=== PATIENT | female | born 2005 | race Two or more races ===

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

== ENCOUNTER 2025-03-12 16:25 | Emergency (ER) | payer MEDICAID ==
[~2025-03-12] VITALS: Ht 152.4 cm; Wt 87.0 kg
[~2025-03-12 16:25] MED LIST changes: -AMOX-277 PO; +AMOX875T4 PO
[2025-03-12 16:49] VITALS: BP 115/56; PULSE 97; RESP 18; TEMP 97.7; O2SAT 95
[2025-03-12 17:42] LABS: Alanine Aminotransferase 16 U/L (7-40); Albumin 4.1 g/dL (3.2-4.8); Alkaline Phosphatase 63 U/L (46-116); Anion Gap 9 (5-15); Aspartate Aminotransferase 14 U/L (13-40); Carbon Dioxide 25 mmol/L (20-31); Glucose 85 mg/dL (74-106); Sodium 141 mmol/L (136-145); Total Protein 6.5 g/dL (5.7-8.2)
[2025-03-12 17:43] LABS: BUN/Creatinine Ratio 11.1 (10.0-20.0); Bilirubin, Total 0.2 mg/dL (0.2-1.0); Blood Urea Nitrogen < 5 mg/dL (9-23); Chloride 107 mmol/L (98-107)
[2025-03-12 17:46] LABS: Basophils # (auto) 0 10 ^3/uL (0-0.2); Basophils % (auto) 0.3 % (0.0-2.0); Eosinophils # (auto) 0.1 10 ^3/uL (0-0.8); Eosinophils % (auto) 1.4 % (0.0-7.0); Hematocrit 39.1 % (36.0-46.0); Hemoglobin 13.2 g/dL (12.2-16.2); Lymphocytes # (auto) 2.1 10 ^3/uL (0.4-5.4); Mean Corpuscular Hemoglobin 28.6 pg (28.0-32.0); Mean Corpuscular Hgb Conc. 33.6 g/dL (32.0-36.0); Mean Corpuscular Volume 84.9 fL (80.0-100.0); Monocytes # (auto) 0.8 10 ^3/uL (0-1.3); Monocytes % (auto) 8.4 % (0.0-12.0); Neutrophils # (auto) 6.6 10 ^3/uL (1.6-8.6); Neutrophils % (auto) 67.9 % (37.0-80.0); Nucleated Red Blood Cells % 0.2 %; Platelet Count (auto) 315 10^3/uL (140-450); Red Blood Cells 4.61 10^6/uL (4.0-5.20); Red Cell Distribution Width 14.5 % (11.8-14.3); White Blood Cell 9.7 10^3/uL (4.4-10.8)
--- NOTE | 2025-03-12 18:22 | DVH ---
EXAM: US Abdomen Limited CLINICAL INDICATION: AT SURGICAL SITE/R/O ABCCESS TECHNIQUE: Real-time ultrasound of the mid quadrant with image documentation. COMPARISON: None FINDINGS: SOFT TISSUES: Surgical skin olga. No obvious fluid collection or organized abscess. OTHER FINDINGS: . Unremarkable. IMPRESSION: Surgical skin olga. No obvious fluid collection or organized abscess.
[2025-03-12] MEDS ORDERED: CEPH500C PO (18:40)
--- NOTE | 2025-03-12 18:41 | ED.PDOC ---
History of Present Illness(SKN HPI Comments WITH A CC OF ABSCESS TO MID ABD REGION S/P LABOTOMY D/T. PT REPORTS 21 WKS AND STATES GREEN FLUID DRAINING FROM SURGICAL SITE ON ABDOMEN. PATIENT DENIES FEVER, CHILLS, NAUSEA, VOMITING, VAGINAL BLEEDING, VOMIT VAGINAL SPOTTING, CHEST PAIN, DIFFICULTY BREATHING, SHORTNESS A BREATH. Chief Complaint: Wound Check Time Seen by MD: 16:50 Primary Care Provider: NONE History of Present Illness: Nurses Notes, Medications, Allergies Allergies: Coded Allergies: NO KNOWN ALLERGIES (Unverified , 09/12/16) Home Meds Active Scripts Cephalexin Monohydrate (Cephalexin) 500 Mg Cap, 1 CAP PO QID for 7 Days, #40 CAP Prov:MARK ALEXANDRA SOFTWARE INTEGRATION DEVELOPER 03/12/25 Amoxicillin & Pot Clavulanate (Amoxicillin/Potassium Cla) 875 Mg Tab, 1 TAB PO BID for 7 Days, #14 TAB 0 Refills Prov:LENY CESAR SOFTWARE INTEGRATION DEVELOPER 12/13/21 Information Source: Patient Mode of Arrival: Ambulatory Past Medical History PAST MEDICAL HISTORY: Denies Surgical History: Denies all surgeries 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 Family History Family History: Reviewed,noncontributory to illness Social History Smoker: Non-Smoker Alcohol: Denies ETOH Use Drugs: Denies Drug Use Lives In: Home Constitutional: reports: chills; denies: diaphoresis, fatigue, fever, malaise, sweats, weakness, others EENTM: denies: blurred vision, double vision, ear bleeding, ear discharge, ear drainage, ear pain, ear ringing, eye pain, eye redness, hearing loss, mouth pain, mouth swelling, nasal discharge, nose bleeding, nose congestion, nose pain, photophobia, tearing, throat pain, throat swelling, voice changes, others Respiratory: denies: cough, hemoptysis, orthopnea, SOB at rest, shortness of breath, SOB with excertion, stridor, wheezing, others Cardiovascular: denies: chest pain, dizzy spells, diaphoresis, Dyspnea on exertion, edema, irregular heart beat, left arm pain, lightheadedness, palpitations, PND, syncope, others Gastrointestinal: denies: abdomen distended, abdominal pain, blood streaked bowels, constipated, diarrhea, dysphagia, difficulty swallowing, hematemesis, melena, nausea, poor appetite, poor fluid intake, rectal bleeding, rectal pain, vomiting, others Genitourinary: denies: abnormal vagina bleeding, burning, dyspareunia, dysuria, flank pain, frequency, hematuria, incontinence, pain, , vagina discharge, urgency, others Neurological: denies: dizziness, fainting, headache, left sided numbness, left sided weakness, numbness, paresthesia, pre-existing deficit, right sided numbness, right sided weakness, seizure, speech problems, tingling, tremors, weakness, others Musculoskeletal: denies: back pain, gout, joint pain, joint swelling, muscle pain, muscle stiffness, neck pain, others Integumetry: denies: bruises, change in color, change in hair/nails, dryness, laceration, lesions, lumps, rash, wounds, others Allergic/Immunocompromised: denies: Difficulty Healing, Frequent Infections, Hives, Itching, others Hematologic/Lymphatic: denies: anemia, blood clots, easy bleeding, easy bruising, swollen glands, others Endocrine: denies: excessive hunger, excessive sweating, excessive thirst, excessive urination, flushing, intolerance to cold, intolerance to heat, unexplained weight gain, unexplained weight loss, others Psychiatric: denies: anxiety, bipolar disorder, depression, hopeless, panic disorder, schizophrenia, sleepless, suicidal, others Physical Exam General Appearance: No Apparent Distress, Normal HEENT: Normal ENT Inspection, Pharynx Normal, TMs Normal Neck: Full Range of Motion, Non-Tender Respiratory: Lungs Clear, No Respiratory Distress, Normal Breath Sounds Cardiovascular: No Edema, No JVD, No Murmur, No Gallop, Normal Peripheral Pulses, Regular Rate/Rhythm Breast Exam: Deferred Gastrointestinal: No Organomegaly, No Pulsatile Mass, Normal Bowel Sounds, Soft, Tenderness (OVER SURGICAL SITE) Genitalia: Deferred Pelvic: Deferred Rectal: Deferred Extremities: No calf tenderness, Normal capillary refill, Normal inspection, Normal range of motion, Non-tender, No pedal edema Musculoskeletal : Apperance: Normal Neurologic: Alert, burling and joining supervisor II-XII nml as Tested, No Motor Deficits, Normal Affect, Normal Mood, No Sensory Deficits Cerebellar Function: Normal Reflexes: Normal Skin: Dry, Normal Color, Warm, Wounds (SURGICAL SITE RAIZA IN PLACE TRACE YELLOWISH DRAINAGE AROUND RAIZA WITH TRACE ERYTHEMA . NO NOTED STREAKING.) Lymphatic: No Adenopathy Was a procedure done? Was a procedure done?: No Differential Diagnosis (INTG) Differential Diagnosis: Cellulitis, Hematoma Differential Diagnosis: Abscess X-Ray, Labs, Meds, VS Vital Signs Date Time Temp Pulse Resp B/P (MAP) Pulse Ox O2 Delivery O2 Flow Rate FiO2 03/12/25 16:49 97.7 97 18 115/56 (75) 95 97.7 Lab Test 03/12/25 17:02 Range/Units White Blood Count 9.7 4.4-10.8 10^3/uL Red Blood Count 4.61 4.0-5.20 10^6/uL Hemoglobin 13.2 12.2-16.2 g/dL Hematocrit 39.1 36.0-46.0 % Mean Corpuscular Volume 84.9 80.0-100.0 fL Mean Corpuscular Hemoglobin 28.6 28.0-32.0 pg Mean Corpuscular Hemoglobin Concent 33.6 32.0-36.0 g/dL Red Cell Distribution Width 14.5 H 11.8-14.3 % Platelet Count 315 140-450 10^3/uL Mean Platelet Volume 8.3 6.9-10.8 fL Neutrophils (%) (Auto) 67.9 37.0-80.0 % Lymphocytes (%) (Auto) 22.0 10.0-50.0 % Monocytes (%) (Auto) 8.4 0.0-12.0 % Eosinophils (%) (Auto) 1.4 0.0-7.0 % Basophils (%) (Auto) 0.3 0.0-2.0 % Neutrophils # (Auto) 6.6 1.6-8.6 10 ^3/uL Lymphocytes # (Auto) 2.1 0.4-5.4 10 ^3/uL Monocytes # (Auto) 0.8 0-1.3 10 ^3/uL Eosinophils # (Auto) 0.1 0-0.8 10 ^3/uL Basophils # (Auto) 0 0-0.2 10 ^3/uL Nucleated Red Blood Cells 0.2 % Sodium Level 141 136-145 mmol/L Potassium Level 4.0 3.5-5.1 mmol/L Chloride Level 107 98-107 mmol/L Carbon Dioxide Level 25 20-31 mmol/L Anion Gap 9 5-15 Blood Urea Nitrogen < 5 L 9-23 mg/dL Creatinine 0.45 L 0.550-1.02 mg/dL Glomerular Filtration Rate Calc 141 >90 mL/min BUN/Creatinine Ratio 11.1 10.0-20.0 Serum Glucose 85 74-106 mg/dL Calcium Level 10.0 8.7-10.4 mg/dL Total Bilirubin 0.2 0.2-1.0 mg/dL Aspartate Amino Transferase (AST) 14 13-40 U/L Alanine Aminotransferase (ALT) 16 7-40 U/L Alkaline Phosphatase 63 46-116 U/L Total Protein 6.5 5.7-8.2 g/dL Albumin 4.1 3.2-4.8 g/dL X-Ray, Labs, Meds, VS Comment ULTRASOUND ABDOMEN HAS SURGICAL SITES SHOWS NO NOTED ABSCESS OR HEMATOMA. CBC WITHIN NORMAL LIMITS NO LEUKOCYTOSIS OR ELEVATION WHITE BLOOD CELLS CMP WITHIN NORMAL LIMITS. WILL TREAT FOR LOCAL SURGICAL SITE INFECTION SCRIPT ANTIBIOTICS THE PATIENT'S PHARMACY ON FILE. ADVISED TO TAKE MEDICATIONS PRESCRIBED SIDE EFFECTS DISCUSSED. ADVISED TO FOLLOW UP WITH HER PCP AND SURGEON SCHEDULED. WE DISCUSSED ER RETURN PRECAUTIONS PATIENT INDICATES UNDERSTANDING AGREES WITH THE DISCHARGE PLAN OF CARE. Time of 1ST Reevaluation: 18:38 Reevaluation 1ST: Improved Patient Education/Counseling: Diagnosis, Treatment, Prognosis, Need For Follow Up Family Education/Counseling: Diagnosis, Treatment, Prognosis, Need For Follow Up Departure 1 Departure Time of Disposition: 18:38 Impression: Primary Impression: Surgical site infection Disposition: HOME / SELF CARE / HOMELESS Condition: Stable e-Prescriptions Cephalexin Monohydrate (Cephalexin) 500 Mg Cap 1 CAP PO QID for 7 Days, #40 CAP Prov: MARK ALEXANDRA 03/12/25 Discharged With: Spouse Critical Care Note Critical Care Time?: No Stability Stability form required: MARK Montejo Mar 12, 2025 18:41
== END 2025-03-12 23:39 | disposition home or self-care (01) ==
LOC: ER 16:29
DX: O9A.212 Injury, poisoning and certain other consequences of external causes complicating pregnancy, second trimester (principal); T81.41XA Infection following a procedure, superficial incisional surgical site, initial encounter; Z3A.21 21 weeks gestation of pregnancy
CPT/HCPCS: 36415; 76705; 80053; 85025